=== PATIENT | male | born 1995 | race Caucasian/White ===

== ENCOUNTER 2017-04-22 21:48 | Emergency (ER) | payer SELFPAY ==
[2017-04-22] MEDS ORDERED: Octyl 2-Cyanoacrylate 1 Tube TOP ONE (22:29)
[2017-04-22] MEDS ORDERED: Cephalexin 500 MG Cap PO ONE (23:01)
--- NOTE | 2017-04-22 23:07 | EDM.PDOC ---
ED HPI GENERAL MEDICAL PROBLEM - General Stated Complaint: LEFT KNEE LACERATION Time Seen by Provider: 04/22/17 22:00 - History of Present Illness INITIAL COMMENTS - FREE TEXT/NARRATIVE: HISTORY AND PHYSICAL: History of present illness: [21-year-old male no significant past medical history now complaining of left knee laceration. Patient was using a chainsaw earlier today when the chain cut his knee. Patient states his tetanus is up-to-date. He is able to use and move his knee normally. No pain with weightbearing. No other complaints] Review of systems: As per history of present illness and below otherwise all systems reviewed and negative. Past medical history: As per history of present illness and as reviewed below otherwise noncontributory. Surgical history: As per history of present illness and as reviewed below otherwise noncontributory. Social history: No reported history of drug or alcohol abuse. Family history: As per history of present illness and as reviewed below otherwise noncontributory. Physical exam: 3 cm superficial and subcutaneously laceration in left patellar distribution with no bony or joint involvement. No clear fluid discharge from the laceration. Hemostatic on exam. No gross contamination HEENT: Atraumatic, normocephalic, pupils reactive, negative for conjunctival pallor or scleral icterus, mucous membranes moist, throat clear, neck supple, nontender, trachea midline. Lungs: Clear to auscultation, breath sounds equal bilaterally, chest nontender. Heart: S1S2, regular, negative for clicks, rubs, or JVD. Abdomen: Soft, nondistended, nontender. Negative for masses or hepatosplenomegaly. Negative for costovertebral tenderness. Pelvis: Stable nontender. Genitourinary: Deferred. Rectal: Deferred. Extremities: As above otherwise Atraumatic, negative for cords or calf pain. Neurovascular unremarkable. Neuro: Awake, alert, oriented. Exam nonfocal. Diagnostics: [X-ray left knee negative for foreign body or fracture] Therapeutics: [Ibuprofen by mouth as well as Keflex] Impression: [Laceration left knee] Plan: [Signs and symptoms consistent with uncomplicated laceration in left knee distribution. No visible foreign body and no fracture. Patient aware of the possibility of occult foreign body. Antibiotic prophylaxis initiated and prescribed with Keflex. Tetanus up-to-date. Patient aware critical importance of close follow-up with his primary care for reevaluation in 2 days for wound check. Dermabond repair performed. No further workup or treatment indicated. Patient agrees with outpatient follow-up and strict return precautions given Seizure Dermabond repair of 3 cm left knee laceration by MONALISA Moya Wound irrigated extensively with high-pressure jet irrigation, saline. Pressure applied wound hemostatic well approximated and Dermabond applied by me patient tolerated well good result occasion] Definitive disposition and diagnosis as appropriate pending reevaluation and review of above. [] Definitive disposition and diagnosis as appropriate pending reevaluation and review of above. Left Knee Pain Score (Numeric/FACES): 7 - Related Data Allergies Allergy/AdvReac Type Severity Reaction Status Date / Time acetaminophen [From [place]] Allergy Vomiting Verified 04/22/17 22:05 hydrocodone [From [place]] Allergy Vomiting Verified 04/22/17 22:05 morphine Allergy Vomiting Verified 04/22/17 22:05 Home Meds: Home Meds . [No Known Home Meds] 04/22/17 [History] Past Medical History - Past Health History Medical/Surgical History: Denies Medical/Surgical History Other Genitourinary History: enlraged testicles - Infectious Disease History Infectious Disease History: Reports: Chicken Pox - Past Surgical History Other Male Surgeries/Procedures: stents in groin Social & Family History - Family History Family Medical History: Noncontributory - Tobacco Use Smoking Status *Q: Current Every Day Smoker Years of Tobacco use: 5 Packs/Tins Daily: 0.1 - Caffeine Use Caffeine Use: Reports: None - Recreational Drug Use Recreational Drug Use: Yes Recreational Drug Type: Reports: Marijuana/Hashish Recreational Drug Last Use: 2 years ago ED ROS GENERAL - Review of Systems Review Of Systems: See Below (History of present illness) ED EXAM, GENERAL - Physical Exam Exam: See Below (History of present illness) Course - Vital Signs Last Recorded V/S: Last Vital Signs Temp 36.4 C 04/22/17 21:57 Pulse 80 04/22/17 21:57 Resp 19 04/22/17 21:57 BP 127/76 04/22/17 21:57 Pulse Ox 98 04/22/17 21:57 - Orders/Labs/Meds Orders: Active Orders 24 hr Category Date Time Status Knee 1V or 2V Lt [CR] Stat Exams 04/22/17 22:29 Ordered Meds: Medications Discontinued Medications Generic Name Dose Route Start Last Admin Trade Name Celestina PRN Reason Stop Dose Admin Octyl Cyanoacrylate 1 applic 04/22/17 22:29 Dermabond Advance TOP 04/22/17 22:30 ONETIME ONE Departure - Departure Time of Disposition: 23:01 Disposition: Home, Self-Care 01 Condition: Good Clinical Impression: Laceration of left knee - Discharge Information Additional Instructions: Your laceration has been repaired with wound adhesive. Do not apply ointment, pick, scratch or scrub it. Take ibuprofen and Tylenol as needed for pain. Finish Keflex as prescribed to prevent infection. As we discussed the where there is a possibility of a foreign body dirt or other material in your wound which we cannot see on x-raying and did not find during irrigation. Follow-up with your doctor in 2 days and return immediately for new severe worsening symptoms, specifically signs of worsening infection. - My Orders Last 24 Hours: My Active Orders 04/22/17 22:29 Knee 1V or 2V Lt [CR] Stat - Assessment/Plan Last 24 Hours: My Active Orders 04/22/17 22:29 Knee 1V or 2V Lt [CR] Stat
[2017-04-22 23:37] VITALS: BP 119/56
--- NOTE | 2017-04-23 08:47 | CR ---
EXAM DATE: 04/22/17 PATIENT'S AGE: 21 Patient: MITZY LARA Facility: [place], [place] Site . Site : 1995 Study: XRay Knee Left [id number]/7/2017 11:00:14 PM Ordering Physician: Erick Charles Final Report: INDICATION: r/o foreign body TECHNIQUE: Two views of the left knee COMPARISON: None FINDINGS: Bones: No fractures or bone lesions. Joint spaces: Unremarkable. Soft tissues: Unremarkable. IMPRESSION: No acute bony abnormality or radiopaque foreign body. Dictated by Mart Garcia MD @ 04/22/2017 11:12:36 PM Dictated by: Mart Garcia MD @ 04/22/2017 23:18:28 (Electronic Signature) Report Signed by Proxy. [facility] MED[facility] CENTERAlexx
== END 2017-04-22 23:24 | disposition home or self-care (01) ==
LOC: MW.ED 21:48
DX: S81.012A Laceration without foreign body, left knee, initial encounter (principal); Z88.6 Allergy status to analgesic agent; Z88.5 Allergy status to narcotic agent; F17.210 Nicotine dependence, cigarettes, uncomplicated; W29.3XXA Contact with powered garden and outdoor hand tools and machinery, initial encounter
CPT/HCPCS: 12002; 73560; 99283; A9270; 99282

== ENCOUNTER 2017-06-18 10:00 | Emergency (ER) | payer SELFPAY ==
[2017-06-18 10:16] VITALS: BP 121/68
--- NOTE | 2017-06-18 10:46 | EDM.PDOC ---
ED HPI GENERAL MEDICAL PROBLEM - General Chief Complaint: Neuro Symptoms/Deficits Stated Complaint: seizures Time Seen by Provider: 06/18/17 10:30 Source of Information: Reports: Patient History Limitations: Reports: No Limitations - History of Present Illness INITIAL COMMENTS - FREE TEXT/NARRATIVE: Presents to the ER reporting a seizure disorder. The patient states at age 17 he began having uncontrolled seizure. He was found to have a "lump" on the left side of his brain. He was never established however if that was the cause of his seizures. He is from [place] and was seen for several years by a neurologist there who specializes in recalcitrant seizure. He describes seizures that were very difficult to control and required repeated hospitalizations. He recalls at one time having 43 seizures in a day while hospitalized. Eventually he was maintained on Keppra, Topamax and Dilantin for seizure prophylaxis and migraine headache. Within the past year he discontinued his medications because he had been asymptomatic for quite some time. Within the last 2 weeks he has noticed an increase in migraine headache that is exacerbated by work or exertion. He works as a heavy equipment service technician and is concerned that he will again have a seizure. He is willing to go back and see his neurologist promptly. Currently he has a 6 out of 10 headache but denies any nausea, visual symptoms focal weakness or seizure activity. - Related Data Allergies Allergy/AdvReac Type Severity Reaction Status Date / Time acetaminophen [From [place]] Allergy Vomiting Verified 06/18/17 10:16 hydrocodone [From [place]] Allergy Vomiting Verified 06/18/17 10:16 morphine Allergy Vomiting Verified 06/18/17 10:16 Home Meds: Home Meds levETIRAcetam [Keppra] 500 mg PO BID 14 Days #28 tablet 06/18/17 [Rx] Past Medical History - Past Health History Medical/Surgical History: Denies Medical/Surgical History Other Genitourinary History: enlraged testicles Musculoskeletal History: Reports: Other (See Below) Other Musculoskeletal History: scoliosis, kyphosis Neurological History: Reports: Migraines - Infectious Disease History Infectious Disease History: Reports: Chicken Pox - Past Surgical History HEENT Surgical History: Reports: Adenoidectomy, Tonsillectomy Other Male Surgeries/Procedures: stents in groin Social & Family History - Family History Family Medical History: Noncontributory - Tobacco Use Smoking Status *Q: Current Some Day Smoker Years of Tobacco use: 4 Packs/Tins Daily: 1 - Caffeine Use Caffeine Use: Reports: None - Recreational Drug Use Recreational Drug Use: No Recreational Drug Type: Reports: Marijuana/Hashish Recreational Drug Last Use: 2 years ago ED ROS GENERAL - Review of Systems Review Of Systems: ROS reveals no pertinent complaints other than HPI. Constitutional: Reports: No Symptoms - Physical Exam Exam: See Below Exam Limited By: No Limitations General Appearance: Alert, No Apparent Distress Ears: Normal External Exam Nose: Normal Inspection Throat/Mouth: Normal Inspection Head Exam: Atraumatic, Normocephalic Neck: Normal Inspection. No: Lymphadenopathy (L), Lymphadenopathy (R) Respiratory/Chest: No Respiratory Distress, Lungs Clear, Normal Breath Sounds Cardiovascular: Normal Peripheral Pulses, Regular Rate, Rhythm GI/Abdominal: Soft Neuro Exam (Abbreviated): Alert, Oriented, CN II-XII Intact, Normal Cognition, Normal Gait, Normal Reflexes, No Motor/Sensory Deficits Extremities: Normal Inspection, Normal Range of Motion Psychiatric: Normal Affect, Normal Mood Skin Exam: Warm, Dry, Intact, Normal Color, No Rash Course - Vital Signs Last Recorded V/S: Last Vital Signs Temp 36.3 C 06/18/17 10:13 Pulse 72 06/18/17 10:13 Resp 18 06/18/17 10:13 BP 121/60 06/18/17 10:13 Pulse Ox 94 L 06/18/17 10:13 - Re-Assessments/Exams Free Text/Narrative Re-Assessment/Exam: 06/18/17 10:51 The patient was very willing to go back to [place] to see his neurologist. He had an extensive workup there and was under his neurologist care for several years. We have nothing to compare as far as scanning goes here in [place]. The patient's sister is with him and already in the exam room was making arrangements for a flight to get him back to [place]. Departure - Departure Time of Disposition: 10:48 Disposition: Home, Self-Care 01 Condition: Good Clinical Impression: Headache Qualifiers: Headache type: unspecified Headache chronicity pattern: unspecified pattern Intractability: not intractable Qualified Code(s): R51 - Headache - Discharge Information Instructions: Urinary Tract Infection, Adult, [id number], Dysuria Referrals: PCP,None [Primary Care Provider] - Forms: ED Department Discharge Additional Instructions: 1. Take your Keppra twice daily 2. Return to your neurologist in [place] promptly for re-evaluation.
== END 2017-06-18 11:14 | disposition home or self-care (01) ==
LOC: MW.ED 10:00
DX: R51 Headache (principal); F17.210 Nicotine dependence, cigarettes, uncomplicated; Z98.890 Other specified postprocedural states; Z88.5 Allergy status to narcotic agent; Z88.6 Allergy status to analgesic agent
CPT/HCPCS: 99283